=== PATIENT | female | born 1975 | race Two or more races ===

== ENCOUNTER 2025-03-10 12:45 | Emergency (ER) | payer OTHER ==
[~2025-03-10] VITALS: Ht 160 cm; Wt 90.7 kg
[2025-03-10] MEDS ORDERED: ACETAMINOPHEN 500 MG GEL..CAP PO ONE ×2 (15:15→15:47)
[2025-03-10] MEDS ORDERED: ORPHENADRINE CITRATE 30 MG/ML AMPUL IM ONE (15:15)
[2025-03-10] MEDS ORDERED: ORPHENADRINE CITRATE 30 MG/ML AMPUL ONE (15:47)
[2025-03-10] MEDS ORDERED: NORFLEX100MG PO (17:07)
[2025-03-10] MEDS ORDERED: MEDROLPACK PO (17:07)
[2025-03-10] MEDS ORDERED: IBU600 MG PO (17:07)
== END 2025-03-10 17:58 ==
LOC: ER 12:45
DX: M62.838 Other muscle spasm (principal); M54.2 Cervicalgia; M25.511 Pain in right shoulder; R51.9 Headache, unspecified